=== PATIENT | male | born 1960 | race Caucasian/White ===

== ENCOUNTER 2017-06-05 22:36 | Inpatient (IN) | payer OTHER ==
[~2017-06-05] VITALS: Ht 177.8 cm; Wt 126.1 kg
[2017-06-05 22:42] VITALS: BP 225/105
[2017-06-05] MEDS ORDERED: LISINOPRIL20 MG PO (22:50)
[2017-06-05] MEDS ORDERED: DICLOFENAC SOD50 M1 PO (22:50)
[2017-06-05] MEDS ORDERED: METFORMIN HCL500 MG PO (22:51)
[2017-06-05] MEDS ORDERED: FLOMAX0.4 MG PO (22:51)
[2017-06-05] MEDS ORDERED: CIALIS5 MG PO (22:51)
[2017-06-05] MEDS ORDERED: TOUJEO SOL300 UNIT/1 SUBQ (22:52)
[2017-06-05 23:06] LABS: ABSOLUTE BASOPHILS 0.1 thou/uL (0.0-0.2); ABSOLUTE EOSINOPHILS 0.3 thou/uL (0.0-0.7); ABSOLUTE LYMPHOCYTES 4.8 thou/uL (0.8-5.3); ABSOLUTE MONOCYTES 0.6 thou/uL (0.0-1.2); ABSOLUTE NEUTROPHILS 8.2 thou/uL (1.6-8.1); BASOPHILS 1.1 %; EOSINOPHILS 2.3 %; HEMATOCRIT 39.7 % (42.0-52.0); HEMOGLOBIN 13.6 gm/dL (14.0-18.0); LYMPHOCYTES 33.9 %; MCHC 34.4 g/dL (28.0-37.0); MCV 87.4 fL (80.0-100.0); MONOCYTES 4.2 %; MPV 7.1 fl. (7.2-11.1); NUCLEATED RBCS 0 /100WBC; PLATELET COUNT* 245 thou/uL (150-400); POLYS 58.5 %; RBC 4.54 mil/uL (4.50-6.00); RDW-CV 12.8 % (10.5-14.5)
[2017-06-05 23:14] LABS: ANION GAP 6 mmol/L (7-16); BUN 27 mg/dL (7-18); CALCIUM 8.7 mg/dL (8.5-10.1); CHLORIDE 102 mmol/L (98-107); CO2 29 mmol/L (21-32); CREATININE 1.2 mg/dL (0.6-1.3); GLUCOSE 143 mg/dL (70-99); POTASSIUM 4.3 mmol/L (3.5-5.1); SODIUM 137 mmol/L (136-145)
[2017-06-05 23:22] LABS: ALBUMIN 2.6 g/dL (3.4-5.0); ALKALINE PHOSPHATASE 81 U/L (46-116); SGOT 12 U/L (15-37); SGPT 22 U/L (30-65); TOTAL BILIRUBIN 0.2 mg/dL (<0.1-1.0); TOTAL PROTEIN 5.9 g/dL (6.4-8.2); TROPONIN-I LEVEL <0.06 ng/mL (<0.06)
[2017-06-05 23:25] LABS: APTT 27.1 Seconds (25.0-31.3)
[2017-06-05 23:54] LABS: URINE BILIRUBIN NEGATIVE (Negative); URINE BLOOD TRACE (Negative); URINE CLARITY CLEAR; URINE COLOR YELLOW; URINE GLUCOSE-RANDOM NEGATIVE (Negative); URINE KETONES NEGATIVE (Negative); URINE LEUKOCYTES-REFLEX NEGATIVE (Negative); URINE NITRITE-REFLEX NEGATIVE (Negative); URINE PROTEIN 2+ (Negative); URINE UROBILINOGEN 0.2 E.U./dl (0.2-1.0)
[2017-06-06] VITALS (7 sets, daily range): BP systolic 115–168; BP diastolic 47–80
[2017-06-06 00:02] LABS: AMORPHOUS URATES Few /LPF (None Seen); BACTERIA-REFLEX 1-9 Few /HPF (None Seen); CASTS None Seen /LPF (None Seen); MUCUS 0-3 Light strn/LPF (None Seen); SQUAMOUS 0-3 Few /LPF (0-3); URINE RBC 3-10 Few /HPF (0-2); URINE WBC-REFLEX 0-5 Rare /HPF (0-5)
[2017-06-06] MEDS ORDERED: NEURONTIN 300300 M1 PO (00:38)
[2017-06-06] MEDS ORDERED: ASPIR 8181 MG PO (00:39)
[2017-06-06] MEDS ORDERED: VYVANSE70 MG PO (00:41)
[2017-06-06] MEDS ORDERED: AVODART0.5 MG PO (00:42)
[2017-06-07] VITALS: BP 168/76
[2017-06-07 04:00] VITALS: BP 147/72
[2017-06-07 06:34] LABS: CHOLESTEROL 228 mg/dL (<200); HDL CHOLESTEROL 39 mg/dL (>40); LDL CHOLESTEROL 117 mg/dL (<100); SERUM ASSESSMENT Clear; TC:HDL 5.8 Ratio (Not establshd); TRIGLYCERIDE 361 mg/dL (<150); VLDL 72 mg/dL (<40)
[2017-06-07 08:00] VITALS: BP 145/73
[2017-06-07 11:27] VITALS: BP 168/82
[2017-06-07] MEDS ORDERED: MINOCIN100 MG PO (12:43)
[2017-06-07] MEDS ORDERED: DEPAKOTE 250MG250 M1 PO (12:44)
[2017-06-07] MEDS ORDERED: LIPITOR10 MG PO (12:45)
[2017-06-07 12:46] VITALS: BP 168/82
--- NOTE | 2017-06-09 17:32 | EKG ---
[place] [address] ELECTROCARDIOGRAM REPORT Name: VELVET HERRERA Room: [address] [place] M.R.#: [id number] Admission: 06/05/17 Attend Phys: Ruchi Kaplan MD Discharge: 06/07/17 Date of : 58 Report #: [id number] THIS REPORT FOR: //name// [facility] ED Test Date: 2017-06-05 Test Time: 23:09:16 Pat Name: VELVET HERRERA Department: Room: [facility] Gender: M Business Management Associate: DIAMANTE : 1960 Requested By: Dmitriy Ahmadi Order Number: [id number] MD: Srinath Adams Measurements Intervals Juda Rate: 63 P: -9 AZ: 229 QRS: -18 QRSD: 102 T: 25 QT: 388 QTc: 398 Interpretive Statements Sinus rhythm Prolonged [place] interval Probable anteroseptal infarct, old Minimal ST elevation, lateral leads No previous ECG available for comparison Electronically Signed On 06-09-2017 17:32:29 [employer] by Srinath Adams [email or web address] <ELECTRONICALLY SIGNED> By: Srinath Adams MD, FACC 06/09/17 1732 2309 [id number] Srinath Adams MD, [facility] /EPI
== END 2017-06-07 15:01 | disposition home or self-care (01) | DRG 683 ==
LOC: M.ERS 22:36 → M.TBA-ER 23:57 → M.2W 23:57
PROVIDERS: Emergency Medicine Emergency Medical Services; ADMIT Internal Medicine
DX: I12.9 Hypertensive chronic kidney disease with stage 1 through stage 4 chronic kidney disease, or unspecified chronic kidney disease (principal); G45.9 Transient cerebral ischemic attack, unspecified; I16.1 Hypertensive emergency; R65.10 Systemic inflammatory response syndrome (SIRS) of non-infectious origin without acute organ dysfunction; N18.3 Chronic kidney disease, stage 3 (moderate); E11.9 Type 2 diabetes mellitus without complications; I10 Essential (primary) hypertension; F17.210 Nicotine dependence, cigarettes, uncomplicated; N40.0 Benign prostatic hyperplasia without lower urinary tract symptoms; M19.90 Unspecified osteoarthritis, unspecified site; Z88.8 Allergy status to other drugs, medicaments and biological substances; Z82.49 Family history of ischemic heart disease and other diseases of the circulatory system; Z81.8 Family history of other mental and behavioral disorders; Z82.3 Family history of stroke; Z80.42 Family history of malignant neoplasm of prostate; Z79.82 Long term (current) use of aspirin